=== PATIENT | male | born 1945 | race Caucasian/White ===

== ENCOUNTER → 2023-04-26 | Outpatient (CLI) | payer OTHER | END | disposition home or self-care (01) | LOC: RADMN 09:04 | PROVIDERS: ATTEND Family Medicine | DX: K22.5 Diverticulum of esophagus, acquired (principal) | CPT/HCPCS: 74230; 92611 ==

== ENCOUNTER → 2023-07-10 | Outpatient (CLI) | payer OTHER | END | disposition home or self-care (01) | LOC: TELEHEALTH 09:40 | PROVIDERS: ATTEND Neurological Surgery | DX: M48.02 Spinal stenosis, cervical region (principal); M50.31 Other cervical disc degeneration, high cervical region | CPT/HCPCS: Q3014 ==

== ENCOUNTER → 2023-10-16 | Outpatient (CLI) | payer OTHER | END | disposition home or self-care (01) | LOC: RADMN 09:14 | PROVIDERS: ATTEND Family Medicine | DX: K22.5 Diverticulum of esophagus, acquired (principal); R13.10 Dysphagia, unspecified | CPT/HCPCS: 74230; 92611 ==